=== PATIENT | female | born 1970 | race African-American/Black ===

== ENCOUNTER 2016-08-17 18:39 | Emergency (ER) | payer OTHER ==
--- NOTE | ~2016-08-17 | CR127 ---
[facility] A Service of [facility] & [facility] RADIOLOGY TEXT RESULTS PATIENT: EVAN COPPOLA LOCATION: [facility] : [birth year] UNIT #: [id number] AGE: [address]: Jonn Pappas DO SEX: F ORDER DR: [id number] [facility] [address] [place], [place] [address] [id number] E MR#: [id number] Acc #: [id number] NAME: EVAN COPPOLA : 1970 SEX: F STUDY DATE/TIME: 08/17/2016 21:21 UNIT: [facility] ROOM: STUDY DESCRIPTION: CR Foot Complete Min 3 View Rt Attending Physician: Jonn Pappas D.O. Ordering Physician: Jonn Pappas D.O. Primary Care Physician: [facility], MEDICAL IMAGING REPORT This report is preliminary unless electronic signature is present EXAM Right foot, 3 views HISTORY Foot pain and numbness for 2 days. No injury. FINDINGS 3 views of the right foot demonstrate moderately severe degenerative arthritis at the first MTP joint. No fracture or dislocation. Small posterior and plantar calcaneal spurs. No fracture or dislocation. Mild degenerative changes in the midfoot. 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 No acute findings. Dictated by... Diego Borjas M.D. THIS IS AN ELECTRONICALLY VERIFIED REPORT Diego Borjas M.D. at 08/17/2016 11:18 PM DFL/psc TD: 08/17/2016 22:54 JOB #: [id number] MEDICAL IMAGING REPORT Page 1 of 1 COPY
--- NOTE | ~2016-08-17 | US85 ---
[facility] A Service of [facility] & [facility] RADIOLOGY TEXT RESULTS PATIENT: EVAN COPPOLA LOCATION: [place] : 70 UNIT #: [id number] AGE: [address]: Jonn Pappas DO SEX: F ORDER DR: [id number] [facility] [address] [place], [place] [address] [id number] E MR#: [id number] Acc #: [id number] NAME: EVAN COPPOLA : 1970 SEX: F STUDY DATE/TIME: 08/17/2016 19:12 UNIT: [place] ROOM: STUDY DESCRIPTION: LE Veins Unilat or Ltd Stdy Attending Physician: Jonn Pappas D.O. Ordering Physician: Ed Doctor [id number] [facility] Primary Care Physician: [facility] MEDICAL IMAGING REPORT This report is preliminary unless electronic signature is present EXAM Right lower extremity venous duplex ultrasound 08/17/2016 HISTORY A 46-year-old female with right lower extremity swelling for several months. Right lower extremity pain. COMPARISON STUDIES None. FINDINGS Real time moreno-scale, color Doppler, spectral Doppler analysis right lower extremity deep venous system demonstrates normal venous waveforms with normal compressibility and augmentation throughout. No evidence of right lower extremity deep venous thrombosis. IMPRESSION Negative for right lower extremity DVT. Dictated by... Austyn Ansari M.D. THIS IS AN ELECTRONICALLY VERIFIED REPORT Austyn Ansari M.D. at 08/18/2016 10:57 PM FRANCISCO/oralia TD: 08/17/2016 22:23 JOB #: [id number] MEDICAL IMAGING REPORT Page 1 of 1 COPY
[2016-08-17 21:30] LABS: BASOPHIL# 0.1 X10e3 (0-0.3); BASOPHIL% 0.9 % (0-2.5); EOSINOPHIL# 0.3 X10e3 (0-0.7); EOSINOPHIL% 3.8 % (0.0-7.0); HEMATOCRIT 37.8 % (35.0-45.0); HEMOGLOBIN 12.2 gm/dL (12.0-16.0); LYMPHOCYTE# 4.3 X10e3 (1.0-3.5); LYMPHOCYTE% 52.8 % (17.0-45.0); MEAN CELL VOLUME 84.8 FL (83-96); MEAN CORPUSCULAR HEMOGLOBIN 27.4 PG (28-34); MEAN CORPUSCULAR HGB CONC 32.3 g/dL (30-36); MEAN PLATELET VOLUME 7.6 FL (6.5-11.5); MONOCYTE# 0.5 X10e3 (0-1.0); MONOCYTE% 6.2 % (3.0-12.0); NEUTROPHIL# 2.9 X10e3 (1.5-7.1); NEUTROPHIL% 36.3 % (40-75); PLATELET COUNT 315 X10e3 (140-420); RED BLOOD COUNT 4.46 X10e (3.90-5.30); RED CELL DISTRIBUTION WIDTH 13.7 % (11.0-15.5); WHITE BLOOD COUNT 8.1 X10e3 (4.0-10.5)
[2016-08-17 21:31] LABS: DIFF IND YES
[2016-08-17 21:52] LABS: ANISOCYTOSIS SL; PLATELET ESTIMATE NORMAL (NORMAL); POIKILOCYTOSIS SL
[2016-08-17 21:55] LABS: ALBUMIN SERUM 4.1 g/dL (3.5-5.0); BILIRUBIN,TOTAL 0.1 mg/dL (0.2-2.0); BUN/CREATININE RATIO 17.5; CALCIUM SERUM 8.9 mg/dL (8.4-10.2); CREATININE SERUM 0.8 mg/dL (0.6-1.4); GLOM FILT RATE Estimated 102.6 mL/min (>60); POTASSIUM 3.5 mmol/L (3.5-5.1); PROTEIN TOTAL SERUM 7.4 g/dL (6.0-8.3)
== END 2016-08-17 22:35 | disposition home or self-care (01) ==
LOC: CED 18:39 → CFTX 20:49 → CED 20:49
PROVIDERS: Emergency Medicine
DX: M79.671 Pain in right foot (principal); R20.0 Anesthesia of skin
CPT/HCPCS: 29540; 73630; 80053; 83880; 85025; 93971; 99284